=== PATIENT | female | born 1965 ===

== ENCOUNTER → 2024-12-13 | Outpatient (CLI) | payer OTHER ==
[2024-12-13 15:32] LABS: ALT 21 U/L (8-44); AST 21 U/L (13-35); Chol/HDL Ratio 4.66 Ratio; LDL Cholesterol,Calculated 110.3 mg/dL (0.0-131.0)
== END | disposition home or self-care (01) ==
LOC: LABWHC1 09:05
PROVIDERS: ATTEND Internal Medicine Cardiovascular Disease
DX: E78.2 Mixed hyperlipidemia (principal)
CPT/HCPCS: 36415; 80061; 84450; 84460

== ENCOUNTER → 2025-01-04 | Outpatient (CLI) | payer OTHER ==
[2025-01-04 16:12] VITALS: BP 111/74; PULSE 90; RESP 16; TEMP 97.9
--- NOTE | 2025-01-04 16:39 | P.SLEEP ---
History of Present Illness H&P Date: 01/04/25 This is a 59-year-old female patient is presenting today due to concerns of sleep apnea. The patient has been snoring very loud. She has also awakened herself up from sleep due to choking and gasping for air. During a recent drive from [facility], the patient was unable to keep herself awake and she had to pull to a rest area for a short nap. She has been feeling fatigued and tired during the day. She goes to bed at 10 PM and she wakes up 6:30 AM in the morning. On weekends, she sleeps between 11 PM and 8:30 AM. 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 She drinks around 2 to 3 cups of coffee in the morning. She does not drink alcohol. She smokes marijuana. She has other comorbidities including diabetes mellitus type 2, hypertension, peripheral neuropathy and her sleep is restless and the patient takes Neurontin and Cymbalta for chronic pain and restlessness in her legs. She has acid reflux which is well treated. She has hyperlipidemia and coronary artery disease. Her weight has remained stable over the years and there is no recent weight gain or weight loss. The patient has taken naps d uring the day. No history of any motor vehicle accident because of falling asleep. No grinding. She has excessive urination at nighttime as the patient wakes up frequently to urinate. No palpitation. No other complaints otherwise. Review of Systems Constitutional: Reports daytime sleepiness, Reports fatigue Eyes: denies as per HPI, denies blurred vision, denies bulging eye, denies decreased vision, denies diplopia, denies discharge, denies dry eye, denies irritation, denies itching, denies pain, denies photophobia, denies loss of peripheral vision, denies loss of vision, denies tunnel vision/blind spots Ears: deny: decreased hearing, ear discharge, earache, tinnitus Ears, nose, mouth and throat: Reports as per HPI Breasts: absent: as per HPI, change in shape, gynecomastia, masses, nipple discharge, pain, skin changes, swelling Cardiovascular: Reports as per HPI Respiratory: Reports snoring Gastrointestinal: Reports as per HPI Genitourinary: Reports as per HPI Menstruation: Reports as per HPI Musculoskeletal: absent: ankle pain, ankle stiffness, ankle swelling, as per HPI, elbow pain, elbow stiffness, elbow swelling, foot pain, foot stiffness, foot swelling, hand pain, hand stiffness, hand swelling, hip pain, hip stiffness, hip swelling, knee pain, knee stiffness, knee swelling, shoulder pain, shoulder stiffness, shoulder swelling, wrist pain, wrist stiffness, wrist swelling Integumentary: Reports as per HPI Neurological: Reports as per HPI Psychiatric: Reports change in sleep habits, Reports hypersomnia, Reports sleep disturbances Endocrine: Reports as per HPI, Reports fatigue Hematologic/Lymphatic: Reports as per HPI Allergic/Immunologic: Reports as per HPI Past Medical History Past Medical History: Coronary Artery Disease (CAD), Diabetes Mellitus, Hyperlipidemia, Hypertension, Osteoarthritis (OA) Additional Past Medical History / Comment(s): See Dr Farfan's H&P. sinus headaches History of Any Multi-Drug Resistant Organisms: None Reported Past Surgical History: Hysterectomy, Joint Replacement, Orthopedic Surgery, Tubal Ligation Additional Past Surgical History / Comment(s): Right knee replacement, carpal tunnel release X2. Past Anesthesia/Blood Transfusion Reactions: Previous Problems w/ Anesthesia, Postoperative Nausea & Vomiting (PONV) Additional Past Anesthesia/Blood Transfusion Reaction / Comment(s): Hard to wake up. Past Psychological History: No Psychological Hx Reported Smoking Status: Never smoker Past Alcohol Use History: Rare Past Drug Use History: Marijuana Additional Drug Use History / Comment(s): Marijuana use daily. Aware no use 24 hrs prior to procedure. - Past Family History Mother Family Medical History: Cancer, Diabetes Mellitus, Hypertension Additional Family Medical History / Comment(s): Lung cancer. Brother(s) Family Medical History: Diabetes Mellitus, Sleep Apnea/CPAP/BIPAP Additional Family Medical History / Comment(s): snoring Medications and Allergies Home Medications Medication Instructions Recorded Confirmed Type Albuterol Nebulized [Ventolin 2.5 mg INHALATION TID 01/20/24 01/04/25 History Nebulized] Atorvastatin [Lipitor] 40 mg PO HS 01/20/24 01/04/25 History Cetirizine HCl 10 mg PO DAILY 01/20/24 01/04/25 History Cholecalciferol (Vitamin D3) 1 cap PO WEEKLY 01/20/24 07/14/24 History [Vitamin D3 (1250 Mcg = 50,000 Iu)] DULoxetine HCL [Cymbalta] 60 mg PO HS 01/20/24 01/04/25 History Fluticasone Propionate [Armonair 50 mcg INHALATION BID 01/20/24 01/04/25 History Digihaler] Gabapentin 300 mg PO TID 01/20/24 01/04/25 History Isosorbide Mononitrate ER [Imdur] 30 mg PO DAILY 01/20/24 01/04/25 History Nitroglycerin Sl Tabs [Nitrostat] 1 tab SL DIRECTED PRN 01/20/24 01/04/25 History Omeprazole [PriLOSEC] 20 mg PO AC-BRKFST 01/20/24 01/04/25 History cloNIDine HCL 0.1 mg PO BID 01/20/24 01/04/25 History hydroCHLOROthiazide 12.5 mg PO DAILY 01/20/24 01/04/25 History lisinopriL [Prinivil] 20 mg PO DAILY 01/20/24 01/04/25 History metFORMIN HCL 500 mg PO BID 01/20/24 01/04/25 History Albuterol Sulfate [Ventolin HFA] 1 puff INHALATION Q4H PRN 01/21/24 01/04/25 History Aspirin [Adult Low Dose Aspirin EC] 81 mg PO DAILY 01/21/24 01/04/25 History Dulaglutide [Trulicity] 0.75 mg SQ TU 01/21/24 01/04/25 History Loratadine 10 mg PO HS 01/23/24 01/04/25 History Ergocalciferol [Vitamin D2 (1250 See Rx Instructions .ROUTE .COMPLEX 01/04/25 01/04/25 History Mcg = 59006 Iu)] Ondansetron [Ondansetron ODT] 4 mg PO DAILY 01/04/25 01/04/25 History Allergies Allergy/AdvReac Type Severity Reaction Status Date / Time sulfamethoxazole Allergy Unknown Verified 11/30/24 12:43 [From Bactrim] trimethoprim [From Bactrim] Allergy Unknown Verified 11/30/24 12:43 Physical Exam Vitals: Vital Signs Temp Pulse Resp BP Pulse Ox 01/04/25 16:08 97.9 F 90 16 111/74 95 Intake and Output 01/04/25 01/04/25 01/04/25 06:59 14:59 22:59 Other: Weight 108.862 kg The patient appeared well nourished and normally developed. Vital signs as documented. Obese with a Mallampati class IV. The patient has dentures. Weight is 108 kg with a body mass index is 41.6 Head exam is unremarkable. No scleral icterus or corneal arcus noted. Neck is without jugular venous distension, thyromegaly, or carotid bruits. Carotid upstrokes are brisk bilaterally. Lungs are clear to auscultation and percussion. Cardiac exam reveals the PMI to be normally sized and situated. Rhythm is regular. First and second heart sounds normal. No murmurs, rubs or gallops. Abdominal exam reveals normal bowel sounds, no masses, no organomegaly and no aortic enlargement. Extremities are nonedematous and both femoral and pedal pulses are normal. Examination of the skin revealed no evidence of significant rashes, suspicious appearing nevi or other concerning lesions. Neurologically, the patient is awake and alert and the patient does not have any focal neurological deficit. Cranial nerves are essentially intact. Assessment and Plan Plan: Chronic hypersomnia, [place] score of 13, increased likelihood for obstructive sleep apnea specially with her history of snoring and witnessed apneas and sleep fragmentation along with waking up choking and gasping. Obesity with a BMI of 41.5 Coronary artery disease Diabetes mellitus type 2 Hypertension Peripheral neuropathy Acid reflux Hyperlipidemia Plan Increase likelihood for obstructive sleep apnea. The patient will need a screening polysomnography. During this time, the patient was advised to lose weight, maintain regular sleep schedule and avoid driving long distance and patient when feeling drowsy or sleepy. She will implement good sleep hygiene measures. The patient will likely need a CPAP therapy and she patient is committed to have treatment as long as diagnosis confirmed. Will continue to follow. Sleep Note - Sleep Data ESS Total: 13 - Sleep Note Sleep Note: Temperature: 97.9 F Pulse Rate: 90 Respiratory Rate: 16 Blood Pressure: 111/74 SpO2: 95 Height: 5 ft 3.7 in Weight: 108.862 kg BMI: Neck Circumference: 15.5
== END ==
LOC: 3 N SLEEP 15:39 → MERGE 15:40
PROVIDERS: ATTEND Internal Medicine Critical Care Medicine
DX: G47.33 Obstructive sleep apnea (adult) (pediatric) (principal); E66.9 Obesity, unspecified; I25.10 Atherosclerotic heart disease of native coronary artery without angina pectoris; E11.9 Type 2 diabetes mellitus without complications; I10 Essential (primary) hypertension; K21.9 Gastro-esophageal reflux disease without esophagitis; E78.5 Hyperlipidemia, unspecified; G62.9 Polyneuropathy, unspecified; F12.90 Cannabis use, unspecified, uncomplicated; Z88.2 Allergy status to sulfonamides; Z88.1 Allergy status to other antibiotic agents; Z68.41 Body mass index [BMI] 40.0-44.9, adult
CPT/HCPCS: 99211